=== PATIENT | female | born 1955 | race Caucasian/White ===

== ENCOUNTER → 2016-06-19 | Outpatient (CLI) | payer BC ==
[2016-06-19 18:51] LABS: Basophils % (A) 1 %; CH 31.5; CHCM 32.7; Eosinophils # (A) 0.1 k/uL (0-0.7); Eosinophils % (A) 2 %; HCT 43.7 % (34.0-46.0); HDW 2.39; HGB 14.2 gm/dL (11.4-16.0); Luc % (Auto) 3; Lymphocytes % (A) 24 %; MCH 31.5 pg (25.0-35.0); MCHC 32.5 g/dL (31.0-37.0); Mean Platelet Volume 7.1; Monocytes # (A) 0.3 k/uL (0-1.0); Monocytes % (A) 8 %; Neutrophils # (A) 2.5 k/uL (1.3-7.7); Neutrophils % (A) 63 %; RBC 4.51 m/uL (3.80-5.40); RDW 12.6 % (11.5-15.5); WBC (Perox) 4.28
[2016-06-19 19:03] LABS: ALT 38 U/L (9-52); AST 31 U/L (14-36); Alkaline Phosphatase 76 U/L (38-126); Anion Gap 9 mmol/L; Blood Urea Nitrogen 12 mg/dL (7-17); Calcium 10.3 mg/dL (8.4-10.2); Carbon Dioxide 30 mmol/L (22-30); Chloride 103 mmol/L (98-107); Cholesterol 248 mg/dL (<200); Glucose 93 mg/dL (74-99); HDL Cholesterol 86 mg/dL (40-60); Non-African American GFR(MDRD) >60 (>60 ml/min/1.73 sqM); Potassium 4.4 mmol/L (3.5-5.1); Sodium 142 mmol/L (137-145); Total Bilirubin 0.5 mg/dL (0.2-1.3); Triglycerides 57 mg/dL (<150)
== END ==
LOC: MMGSC 10:51
PROVIDERS: ATTEND Family Medicine
DX: Z00.00 Encounter for general adult medical examination without abnormal findings (principal); E78.00 Pure hypercholesterolemia, unspecified; M81.0 Age-related osteoporosis without current pathological fracture
CPT/HCPCS: 36415; 80053; 80061; 82306; 84439; 84443; 85025

== ENCOUNTER → 2018-01-17 | Outpatient (CLI) | payer BC ==
--- NOTE | 2018-01-19 09:13 | MM ---
Reason for exam: screening (asymptomatic). Last mammogram was performed 2 years and 4 months ago. History: Patient is postmenopausal and had first child at age 30. Physical Findings: A clinical breast exam by your physician is recommended on an annual basis and results should be correlated with mammographic findings. MG 3D Screening Mammo W/Cad Bilateral CC and MLO view(s) were taken. Prior study comparison: September 24, 2015, bilateral MG screening mammo w CAD. July 12, 2007, bilateral diagnostic digital mammog. The breast tissue is extremely dense which could obscure a lesion on mammography. No significant changes when compared with prior studies. ASSESSMENT: Benign, BI-RAD 2 RECOMMENDATION: Routine screening mammogram of both breasts in 1 year.
== END | disposition home or self-care (01) ==
LOC: RADMAMWWP 16:10
PROVIDERS: ATTEND Obstetrics & Gynecology
DX: Z12.31 Encounter for screening mammogram for malignant neoplasm of breast (principal)
CPT/HCPCS: 77063; 77067

== ENCOUNTER 2018-07-25 21:52 | Observation (INO) | payer BC, MEDICARE ==
[2018-07-25] MEDS ORDERED: ASPIRIN 81 MG PO STA (22:30)
--- NOTE | 2018-07-25 22:38 | ED ---
General Adult HPI - General Chief complaint: Chest Pain Stated complaint: Chest Pain Time Seen by Provider: 07/25/18 22:02 Source: patient Mode of arrival: wheelchair Limitations: no limitations - History of Present Illness Initial comments: Dictation was produced using [employer] dictation software. please excuse any grammatical, word or spelling errors. Chief Complaint: 62-year-old female presents with chest pain with radiation to the back neck and left upper extremity. History of Present Illness: She has a past medical history of multiple sclerosis. Over the last 2-3 days she's been having chest pain with radiation t o the neck shoulder and left upper extremity. She was told by her chiropractor that there is concerns that symptoms could be secondary to acute coronary syndrome. She was told to come to the emergency department by that individual. Patient denies any cardiac history. She states that her pain is worse with lying back. She feels as though she can't get comfortable. Patient denies any nausea vomiting. No diaphoresis. She does still feel some mild symptoms at this time. Denies any pain with deep inspiration. The ROS documented in this emergency department record has been reviewed and co nfirmed by me. Those systems with pertinent positive or negative responses have been documented in the HPI. All other systems are other negative and/or noncontributory. PHYSICAL EXAM: General Impression: Alert and oriented x3, not in acute distress HEENT: Normocephalic atraumatic, extra-ocular movements intact, pupils equal and reactive to light bilaterally, mucous membranes moist. Cardiovascular: Heart regular rate and rhythm, S1&S2 audible, no murmurs, rubs or gallops Chest: Lungs clear to auscultation bilaterally, no rhonchi, no wheeze, no rales Abdomen: Bowel sounds present, abdomen soft, non-tender, non-distended, no organomegaly Musculoskeletal: Pulses present and equal in all extremities, no peripheral edema Motor: no focal deficits noted Neurological: CN II-XII grossly intact, no focal motor or sensory deficits noted Skin: Intact with no visualized rashes Psych: Normal affect and mood ED course: 62-year-old female presents with atypical chest pain with typical features.. Upon arrival are within acceptable limits. EKG does not show any signs of infarction. Laboratory evaluation obtained. CBC, coag panel, metabolic panel, cardiac enzymes are unremarkable. Chest x-ray is nonacute. Clinical presentation consistent with atypical chest pain with typical features. Disposition plan was made with patient. She requested to be placed in observation patient unit for serial troponins and cardiology consultation. EKG interpretation: Ventricular rate 56, sinus bradycardia, IL interval 140, care is 80, QTc 413. No IL prolongation, no QTC prolongation, no ST or T-wave changes noted. No old EKG for comparison. Overall, this EKG is unremarkable - Related Data Home Medications Medication Instructions Recorded Confirmed Barley Green ( Unknown) 1 tab PO DAILY 07/25/18 07/25/18 Biotin 5,000 mcg PO DAILY 07/25/18 07/25/18 Calcium Carbonate [Calcium] 600 mg PO DAILY 07/25/18 07/25/18 Cataplex E 2 (Unknown) 2 cap PO TID 07/25/18 07/25/18 Cholecalciferol (Vitamin D3) 2,000 unit PO DAILY 07/25/18 07/25/18 [Vitamin D3] Composure (Unknown) 1 tab PO DAILY 07/25/18 07/25/18 Essential Fatty Acid 1 tab PO DAILY 07/25/18 07/25/18 Fiber Drink 1 can PO DAILY 07/25/18 07/25/18 Zinc 50 mg PO DAILY 07/25/18 07/25/18 Allergies Allergy/AdvReac Type Severity Reaction Status Date / Time amoxicillin AdvReac Unknown Verified 07/25/18 22:16 clindamycin AdvReac Unknown Verified 07/25/18 22:16 codeine AdvReac Unknown Verified 07/25/18 22:16 prochlorperazine AdvReac Unknown Verified 07/25/18 22:16 [From Compazine] prochlorperazine edisylate AdvReac Unknown Verified 07/25/18 22:16 [From Compazine] prochlorperazine maleate AdvReac Unknown Verified 07/25/18 22:16 [From Compazine] rofecoxib [From Vioxx] AdvReac Unknown Verified 07/25/18 22:16 Sulfa (Sulfonamide AdvReac Unknown Verified 07/25/18 22:16 Antibiotics) Review of Systems ROS Statement: Those systems with pertinent positive or pertinent negative responses have been documented in the HPI. ROS Other: All systems not noted in ROS Statement are negative. Past Medical History Additional Past Medical History / Comment(s): MS History of Any Multi-Drug Resistant Organisms: None Reported Past Surgical History: Section, Orthopedic Surgery Additional Past Surgical History / Comment(s): oral sx Past Psychological History: No Psychological Hx Reported Smoking Status: Former smoker Past Alcohol Use History: Occasional Past Drug Use History: None Reported General Exam Limitations: no limitations Course Vital Signs 07/25/18 07/25/18 21:54 22:10 Temperature 98.1 F Pulse Rate 71 Pulse Rate [ 58 L Heat And Frost Insulator ] Respiratory 16 Rate Blood Pressure 155/83 O2 Sat by Pulse 100 Oximetry Medical Decision Making - Lab Data Result diagrams: 07/25/18 22:00 07/25/18 22:00 Lab Results 07/25/18 07/25/18 07/25/18 Range/Units 22:00 22:00 22:00 WBC 6.9 (3.8-10.6) k/uL RBC 4.29 (3.80-5.40) m/uL Hgb 13.3 (11.4-16.0) gm/dL Hct 39.5 (34.0-46.0) % MCV 92.1 (80.0-100.0) fL MCH 31.1 (25.0-35.0) pg MCHC 33.8 (31.0-37.0) g/dL RDW 13.7 (11.5-15.5) % Plt Count 217 (150-450) k/uL Neutrophils % 63 % Lymphocytes % 23 % Monocytes % 8 % Eosinophils % 3 % Basophils % 1 % Neutrophils # 4.3 (1.3-7.7) k/uL Lymphocytes # 1.6 (1.0-4.8) k/uL Monocytes # 0.6 (0-1.0) k/uL Eosinophils # 0.2 (0-0.7) k/uL Basophils # 0.0 (0-0.2) k/uL PT 10.1 (9.0-12.0) sec INR 0.9 (<1.2) APTT 25.0 (22.0-30.0) sec Sodium 140 (137-145) mmol/L Potassium 3.9 (3.5-5.1) mmol/L Chloride 106 (98-107) mmol/L Carbon Dioxide 27 (22-30) mmol/L Anion Gap 7 mmol/L BUN 17 (7-17) mg/dL Creatinine 0.60 (0.52-1.04) mg/dL Est GFR (CKD-EPI)AfAm >90 (>60 ml/min/1.73 sqM) Est GFR (CKD-EPI)NonAf >90 (>60 ml/min/1.73 sqM) Glucose 118 H (74-99) mg/dL Calcium 10.8 H (8.4-10.2) mg/dL Magnesium 2.2 (1.6-2.3) mg/dL Total Bilirubin 0.2 (0.2-1.3) mg/dL AST 30 (14-36) U/L ALT 22 (9-52) U/L Alkaline Phosphatase 88 (38-126) U/L Troponin I (0.000-0.034) ng/mL Total Protein 6.6 (6.3-8.2) g/dL Albumin 4.4 (3.5-5.0) g/dL Lipase 237 (23-300) U/L 07/25/18 Range/Units 22:00 WBC (3.8-10.6) k/uL RBC (3.80-5.40) m/uL Hgb (11.4-16.0) gm/dL Hct (34.0-46.0) % MCV (80.0-100.0) fL MCH (25.0-35.0) pg MCHC (31.0-37.0) g/dL RDW (11.5-15.5) % Plt Count (150-450) k/uL Neutrophils % % Lymphocytes % % Monocytes % % Eosinophils % % Basophils % % Neutrophils # (1.3-7.7) k/uL Lymphocytes # (1.0-4.8) k/uL Monocytes # (0-1.0) k/uL Eosinophils # (0-0.7) k/uL Basophils # (0-0.2) k/uL PT (9.0-12.0) sec INR (<1.2) APTT (22.0-30.0) sec Sodium (137-145) mmol/L Potassium (3.5-5.1) mmol/L Chloride (98-107) mmol/L Carbon Dioxide (22-30) mmol/L Anion Gap mmol/L BUN (7-17) mg/dL Creatinine (0.52-1.04) mg/dL Est GFR (CKD-EPI)AfAm (>60 ml/min/1.73 sqM) Est GFR (CKD-EPI)NonAf (>60 ml/min/1.73 sqM) Glucose (74-99) mg/dL Calcium (8.4-10.2) mg/dL Magnesium (1.6-2.3) mg/dL Total Bilirubin (0.2-1.3) mg/dL AST (14-36) U/L ALT (9-52) U/L Alkaline Phosphatase (38-126) U/L Troponin I <0.012 (0.000-0.034) ng/mL Total Protein (6.3-8.2) g/dL Albumin (3.5-5.0) g/dL Lipase (23-300) U/L Disposition Clinical Impression: Chest pain Disposition: ADMITTED IP TO THIS [facility] Condition: Fair Referrals: Irene Carbone MD [Primary Care Provider] - 1-2 days Decision Time: 23:56
[2018-07-25 22:51] LABS: Basophils % (A) 1 %; Eosinophils # (A) 0.2 k/uL (0-0.7); Eosinophils % (A) 3 %; HCT 39.5 % (34.0-46.0); HGB 13.3 gm/dL (11.4-16.0); Lymphocytes # (A) 1.6 k/uL (1.0-4.8); Lymphocytes % (A) 23 %; MCH 31.1 pg (25.0-35.0); MCHC 33.8 g/dL (31.0-37.0); MCV 92.1 fL (80.0-100.0); Mean Platelet Volume 6.9; Monocytes # (A) 0.6 k/uL (0-1.0); Monocytes % (A) 8 %; Neutrophils # (A) 4.3 k/uL (1.3-7.7); Neutrophils % (A) 63 %; Platelet Count 217 k/uL (150-450); RBC 4.29 m/uL (3.80-5.40); RDW 13.7 % (11.5-15.5); WBC 6.9 k/uL (3.8-10.6)
[2018-07-25 22:52] LABS: ALT 22 U/L (9-52); AST 30 U/L (14-36); African American GFR (CKD) >90 (>60 ml/min/1.73 sqM); Albumin 4.4 g/dL (3.5-5.0); Alkaline Phosphatase 88 U/L (38-126); Anion Gap 7 mmol/L; Blood Urea Nitrogen 17 mg/dL (7-17); Calcium 10.8 mg/dL (8.4-10.2); Carbon Dioxide 27 mmol/L (22-30); Chloride 106 mmol/L (98-107); Glucose 118 mg/dL (74-99); Lipase 237 U/L (23-300); Magnesium 2.2 mg/dL (1.6-2.3); Potassium 3.9 mmol/L (3.5-5.1); Sodium 140 mmol/L (137-145); Total Bilirubin 0.2 mg/dL (0.2-1.3); Total Protein 6.6 g/dL (6.3-8.2)
[2018-07-25 22:54] LABS: INR 0.9 (<1.2); Prothrombin Time 10.1 sec (9.0-12.0)
--- NOTE | 2018-07-25 23:13 | XR ---
EXAM: XR Chest, 2 Views CLINICAL HISTORY: ITS.REASON XR Reason: Chest Pain TECHNIQUE: Frontal and lateral views of the chest. COMPARISON: No relevant prior studies available. FINDINGS: Lungs: Unremarkable. No consolidation. Pleural space: Unremarkable. No pneumothorax. Heart: Unremarkable. No cardiomegaly. Mediastinum: Unremarkable. Bones/joints: Unremarkable. IMPRESSION: Normal chest x-rays.
[2018-07-25] MEDS ORDERED: NITROGLYCERIN SL TABS 0.4 MG TAB SUBLINGUAL PRN (23:53)
--- NOTE | 2018-07-26 01:52 | P.HPIM ---
History of Present Illness H&P Date: 07/26/18 Chief Complaint: chest pain 62-year-old female with history of MS. Patient presented to the hospital with complaints of chest pain. She reports that it started 3 days ago, patient doesn't have any cardiac history however her chiropractor suggested that she should go to the hospital to get evaluated to rule out acute coronary syndrome. Patient denies any smoking, history of hypertension, or hyperlipidemia. She reports that pain was 4 out of 10 in severity more of a left-sided over the chest radiating to the back and left arm and left of neck, she saw the chiropractor and had 2 sessions to realign but with no much benefit then she decided come to the ER for evaluation. Patient denies any associated diaphoresis nausea vomiting dizziness lightheadedness headache or palpitations. These pain episodes are not related to activity they happen all of a sudden sometimes with certain movements of the resolves on its own. Patient doesn't take any medications. Patient took 600 mg of Advil once for headache over the past week. Denies any stomach issues like GERD or ulcers in the past. Denies any GI bleeding changes in her urinary or bowel habits denies any abdominal pain. Patient is an avid walker she walks around 2 miles every day, with no limitations. In the ED initial workup was negative, EKG showed sinus bradycardia. Patient admitted for observation to rule out ACS Review of Systems Pertinent positives as noted in HPI. All other systems were reviewed and are negative Past Medical History Additional Past Medical History / Comment(s): MS History of Any Multi-Drug Resistant Organisms: None Reported Past Surgical History: Section, Orthopedic Surgery Additional Past Surgical History / Comment(s): oral sx Past Psychological History: No Psychological Hx Reported Smoking Status: Former smoker Past Alcohol Use History: Occasional Past Drug Use History: None Reported Medications and Allergies Home Medications Medication Instructions Recorded Confirmed Type Barley Green ( Unknown) 1 tab PO DAILY 07/25/18 07/25/18 History Biotin 5,000 mcg PO DAILY 07/25/18 07/25/18 History Calcium Carbonate [Calcium] 600 mg PO DAILY 07/25/18 07/25/18 History Cataplex E 2 (Unknown) 2 cap PO TID 07/25/18 07/25/18 History Cholecalciferol (Vitamin D3) 2,000 unit PO DAILY 07/25/18 07/25/18 History [Vitamin D3] Composure (Unknown) 1 tab PO DAILY 07/25/18 07/25/18 History Essential Fatty Acid 1 tab PO DAILY 07/25/18 07/25/18 History Fiber Drink 1 can PO DAILY 07/25/18 07/25/18 History Zinc 50 mg PO DAILY 07/25/18 07/25/18 History Allergies Allergy/AdvReac Type Severity Reaction Status Date / Time amoxicillin AdvReac Unknown Verified 07/25/18 22:16 clindamycin AdvReac Unknown Verified 07/25/18 22:16 codeine AdvReac Unknown Verified 07/25/18 22:16 prochlorperazine AdvReac Unknown Verified 07/25/18 22:16 [From Compazine] prochlorperazine edisylate AdvReac Unknown Verified 07/25/18 22:16 [From Compazine] prochlorperazine maleate AdvReac Unknown Verified 07/25/18 22:16 [From Compazine] rofecoxib [From Vioxx] AdvReac Unknown Verified 07/25/18 22:16 Sulfa (Sulfonamide AdvReac Unknown Verified 07/25/18 22:16 Antibiotics) Physical Exam Vitals: Vital Signs Temp Pulse Pulse Pulse Resp BP BP 07/26/18 00:47 97.7 F 72 18 127/76 07/25/18 22:10 58 L 07/25/18 21:54 98.1 F 71 16 155/83 Pulse Ox 07/26/18 00:47 98 07/25/18 22:10 07/25/18 21:54 100 Intake and Output 07/25/18 07/25/18 07/26/18 14:59 22:59 06:59 Other: Weight 60.01 kg Constitutional: No acute distress, conversant, pleasant Eyes: Anicteric sclerae, moist conjunctiva, no lid-lag Pupils equal round reactive to light ENMT: NC/AT Oropharynx clear, no erythema, exudates Neck: Supple, FROM, no masses, or JVD No carotid bruits No thyromegaly Lungs: Clear to auscultation Clear to percussion Normal respiratory effort, no accessory muscle use Cardiovascular: Heart regular in rate and rhythm, No murmurs, gallops, or rubs No peripheral edema Abdominal: Soft Nontender, no guarding, rebound or rigidity Abdomen moving with respiration Normoactive bowel sounds No hepatomegaly, No splenomegaly No palpable mass No abdominal wall hernia noted Skin: Normal temperature, tone, texture, turgor No induration No subcutaneous nodules No rash, lesions No ulcers Extremities: No digital cyanosis No clubbing Pedal pulses intact and symmetrical Radial pulses intact and symmetrical No calf tenderness Psychiatric: Alert and oriented to person, place and time Appropriate affect fair judgement Neuro Muscles Strength 5/5 in all 4 extremities Sensation to light touch grossly present throughout Cranial nerves II-XII grossly intact No focal sensory deficits Lymphatics: no palpable cervical or supraclavicular , or inguinal lymph nodes Results CBC & Chem 7: 07/25/18 22:00 07/25/18 22:00 Labs: Abnormal Lab Results - Last 24 Hours (Table) 07/25/18 Range/Units 22:00 Glucose 118 H (74-99) mg/dL Calcium 10.8 H (8.4-10.2) mg/dL Assessment and Plan Assessment: 62-year-old female with history of MS admitted under observation to rule out acute coronary syndrome due to atypical chest pain Plan: Atypical chest pain rule out ACS Cardiac enzymes Cardiac monitoring EKG showing sinus bradycardia Aspirin, nitro when necessary Cardiology consult Monitor vital signs Check morning labs lipid panel CBC BMP Sinus bradycardia by EKG, asymptomatic, currently resolved Cardiac monitoring is showing heart rate in the 70s History of MS currently stable DVT prophylaxis mechanical Surrogate decision-maker: Patient * CODE STATUS: Full code Discussed with: Patient, ER Anticipated discharge: Less than [address]: Home A total of 60* minutes was spent on the care of this complex patient more than 50% of the time was spent in counseling and care coordination.
[2018-07-26 01:56] VITALS: BMI 20.7
[2018-07-26 04:25] LABS: Basophils % (A) 1 %; Eosinophils # (A) 0.1 k/uL (0-0.7); Eosinophils % (A) 3 %; HGB 12.3 gm/dL (11.4-16.0); Lymphocytes # (A) 1.4 k/uL (1.0-4.8); Lymphocytes % (A) 32 %; MCH 31.2 pg (25.0-35.0); MCHC 33.3 g/dL (31.0-37.0); MCV 93.9 fL (80.0-100.0); Mean Platelet Volume 7.3; Monocytes # (A) 0.3 k/uL (0-1.0); Monocytes % (A) 8 %; Neutrophils # (A) 2.4 k/uL (1.3-7.7); Neutrophils % (A) 55 %; Platelet Count 182 k/uL (150-450); RBC 3.94 m/uL (3.80-5.40); RDW 12.5 % (11.5-15.5); WBC 4.5 k/uL (3.8-10.6)
[2018-07-26 05:06] LABS: African American GFR (CKD) >90 (>60 ml/min/1.73 sqM); Anion Gap 4 mmol/L; Blood Urea Nitrogen 17 mg/dL (7-17); Calcium 10.2 mg/dL (8.4-10.2); Carbon Dioxide 28 mmol/L (22-30); Chloride 109 mmol/L (98-107); Cholesterol 190 mg/dL (<200); Glucose 103 mg/dL (74-99); HDL Cholesterol 71 mg/dL (40-60); LDL Cholesterol,Calculated 111 mg/dL (0-99); Potassium 4.2 mmol/L (3.5-5.1); Sodium 141 mmol/L (137-145); Triglycerides 42 mg/dL (<150)
[2018-07-26 07:47] VITALS: BP 132/78; PULSE 79; TEMP 98.1
[2018-07-26 07:57] VITALS: RESP 16
--- NOTE | 2018-07-26 08:52 | P.CRDCN ---
History of Present Illness Consult date: 07/26/18 Chief complaint: Chest pain History of present illness: This is a pleasant 62-year-old female patient with a past medical history significant for multiple sclerosis presented to the emergency room complaining of chest discomfort. The patient described discomfort in the left upper chest, as sharp kind of discomfort, with discomfort also in the left arm. The chest discomfort is clearly nonexertional. It has been intermittent but again is not exertional and lasting only for a few seconds. The EKG showed sinus rhythm without any significant ST or T-wave abnormalities. The chest x-ray did not show any acute abnormalities. The cardiac enzymes were checked and came in to be unremarkable. The patient is not aware of any prior history of coronary artery disease and she does not have any diabetes, hypertension, or dyslipidemia. She does not smoke or drink alcohol. She does not have any significant family history of coronary artery disease. She is quite active and she walk about 2 miles every day. Past Medical History Additional Past Medical History / Comment(s): MS History of Any Multi-Drug Resistant Organisms: None Reported Past Surgical History: Section, Orthopedic Surgery Additional Past Surgical History / Comment(s): oral sx Past Anesthesia/Blood Transfusion Reactions: No Reported Reaction Past Psychological History: No Psychological Hx Reported Smoking Status: Former smoker Past Alcohol Use History: Occasional Past Drug Use History: None Reported - Past Family History Father Family Medical History: Diabetes Mellitus Mother Family Medical History: Hypertension Additional Family Medical History / Comment(s): arrythmia Medications and Allergies Home Medications Medication Instructions Recorded Confirmed Type Barley Green ( Unknown) 1 tab PO DAILY 07/25/18 07/25/18 History Biotin 5,000 mcg PO DAILY 07/25/18 07/25/18 History Calcium Carbonate [Calcium] 600 mg PO DAILY 07/25/18 07/25/18 History Cataplex E 2 (Unknown) 2 cap PO TID 07/25/18 07/25/18 History Cholecalciferol (Vitamin D3) 2,000 unit PO DAILY 07/25/18 07/25/18 History [Vitamin D3] Composure (Unknown) 1 tab PO DAILY 07/25/18 07/25/18 History Essential Fatty Acid 1 tab PO DAILY 07/25/18 07/25/18 History Fiber Drink 1 can PO DAILY 07/25/18 07/25/18 History Zinc 50 mg PO DAILY 07/25/18 07/25/18 History Allergies Allergy/AdvReac Type Severity Reaction Status Date / Time amoxicillin AdvReac Unknown Verified 07/25/18 22:16 clindamycin AdvReac Unknown Verified 07/25/18 22:16 codeine AdvReac Unknown Verified 07/25/18 22:16 prochlorperazine AdvReac Unknown Verified 07/25/18 22:16 [From Compazine] prochlorperazine edisylate AdvReac Unknown Verified 07/25/18 22:16 [From Compazine] prochlorperazine maleate AdvReac Unknown Verified 07/25/18 22:16 [From Compazine] rofecoxib [From Vioxx] AdvReac Unknown Verified 07/25/18 22:16 Sulfa (Sulfonamide AdvReac Unknown Verified 07/25/18 22:16 Antibiotics) Physical Exam Vitals: Vital Signs Temp Pulse Pulse Pulse Resp BP BP 07/26/18 07:54 79 16 07/26/18 07:00 98.1 F 79 18 07/26/18 03:45 98 F 55 L 18 126/68 07/26/18 03:32 18 07/26/18 01:05 18 07/26/18 00:47 97.7 F 72 18 127/76 07/25/18 22:10 58 L 07/25/18 21:54 98.1 F 71 16 155/83 BP Pulse Ox 07/26/18 07:54 07/26/18 07:00 132/78 96 07/26/18 03:45 96 07/26/18 03:32 07/26/18 01:05 07/26/18 00:47 98 07/25/18 22:10 07/25/18 21:54 100 Intake and Output 07/25/18 07/26/18 07/26/18 22:59 06:59 14:59 Other: Voiding Method Toilet Toilet # Voids 1 Weight 60.01 kg - Constitutional General appearance: no acute distress - Respiratory Respiratory: bilateral: CTA - Cardiovascular Rhythm: regular Heart sounds: normal: S1, S2 Abnormal Heart Sounds: systolic murmur Results 07/26/18 04:16 07/26/18 04:16 Cardiac Enzymes 06/03/19 06/03/19 06/04/19 Range/Units 22:00 22:00 04:16 AST 30 (14-36) U/L Troponin I <0.012 <0.012 (0.000-0.034) ng/mL Coagulation 07/25/18 Range/Units 22:00 PT 10.1 (9.0-12.0) sec APTT 25.0 (22.0-30.0) sec Lipids 07/26/18 Range/Units 04:16 Triglycerides 42 (<150) mg/dL Cholesterol 190 (<200) mg/dL HDL Cholesterol 71 H (40-60) mg/dL CBC 07/25/18 07/26/18 Range/Units 22:00 04:16 WBC 6.9 4.5 (3.8-10.6) k/uL RBC 4.29 3.94 (3.80-5.40) m/uL Hgb 13.3 12.3 (11.4-16.0) gm/dL Hct 39.5 37.0 (34.0-46.0) % Plt Count 217 182 (150-450) k/uL Comprehensive Metabolic Panel 07/25/18 07/26/18 Range/Units 22:00 04:16 Sodium 140 141 (137-145) mmol/L Potassium 3.9 4.2 (3.5-5.1) mmol/L Chloride 106 109 H (98-107) mmol/L Carbon Dioxide 27 28 (22-30) mmol/L BUN 17 17 (7-17) mg/dL Creatinine 0.60 0.50 L (0.52-1.04) mg/dL Glucose 118 H 103 H (74-99) mg/dL Calcium 10.8 H 10.2 (8.4-10.2) mg/dL AST 30 (14-36) U/L ALT 22 (9-52) U/L Alkaline Phosphatase 88 (38-126) U/L Total Protein 6.6 (6.3-8.2) g/dL Albumin 4.4 (3.5-5.0) g/dL Current Medications Generic Name Dose Route Start Last Admin Trade Name Freq PRN Reason Stop Dose Admin Aspirin 325 mg 07/26/18 09:00 Aspirin PO DAILY ECHO Nitroglycerin 0.4 mg 07/25/18 23:53 Nitrostat SUBLINGUAL Q5M PRN Chest Pain Intake and Output 07/25/18 07/26/18 07/26/18 22:59 06:59 14:59 Other: Voiding Method Toilet Toilet # Voids 1 Weight 60.01 kg 07/26/18 04:16 07/26/18 04:16 Assessment and Plan Assessment: Assessment #1 atypical chest discomfort #2 multiple sclerosis Plan #1 acute coronary event was ruled out #2 I did discuss with the patient the need for stress test to be done either as an inpatient or outpatient. I recommended the patient to get up and around and if she is asymptomatic she possibly can be discharged home and I will follow-up with the patient as an outpatient were I can arrange for stress test and echo cardiogram. Thank you for allowing us participate in her care and we will continue following up with the patient
[2018-07-26] MEDS ORDERED: ASPIRIN 325 MG TAB PO SCH (09:00)
--- NOTE | 2018-07-26 14:10 | P.DS ---
Providers Date of admission: 07/25/18 23:53 Expected date of discharge: 07/26/18 Attending physician: Marsha Bowens MD Consults: 07/25/18 23:53 Consult Physician Urgent Consulting Provider: Hilario Cavazos Consult Reason/Comments: chest pain Do you want consulting provider notified?: Yes Primary care physician: Irene Carbone - Discharge Diagnosis(es) (1) Atypical chest pain Status: Acute (2) Sinus bradycardia Status: Acute (3) Multiple sclerosis Status: Acute Hospital Course: The patient is a 62 female was placed on observation for atypical chest pain with need to rule out ACS after presenting with chest discomfort, workup with EKG showed sinus mechanism without any significant ST or T wave abnormalities. Chest x-ray did not show any acute abnormalities cardiac enzymes were checked and were all unremarkable the patient does not have any ongoing CAD risk factors and has a negative family history. She was seen by cardiology recommended to follow-up outpatient to potentially have a stress test and echocardiogram done. She was discharged home in stable condition. This discharge process took approximately 30 minutes Focused exam Cardiovascular: Regular rate rhythm no murmurs rubs or gallops, no JVD, PMI n ondisplaced Patient Condition at Discharge: Good Plan - Discharge Summary Discharge Rx Participant: No New Discharge Prescriptions: Continue Zinc 50 mg PO DAILY Cholecalciferol (Vitamin D3) [Vitamin D3] 2,000 unit PO DAILY Calcium Carbonate [Calcium] 600 mg PO DAILY Fiber Drink 1 can PO DAILY Essential Fatty Acid 1 tab PO DAILY Composure (Unknown) 1 tab PO DAILY Cataplex E 2 (Unknown) 2 cap PO TID Barley Green ( Unknown) 1 tab PO DAILY #0 No Action Biotin 5,000 mcg PO DAILY Discharge Medication List Biotin 5,000 mcg PO DAILY 07/25/18 [History] Calcium Carbonate [Calcium] 600 mg PO DAILY 07/25/18 [History] Cataplex E 2 (Unknown) 2 cap PO TID 07/25/18 [History] Cholecalciferol (Vitamin D3) [Vitamin D3] 2,000 unit PO DAILY 07/25/18 [History] Composure (Unknown) 1 tab PO DAILY 07/25/18 [History] Essential Fatty Acid 1 tab PO DAILY 07/25/18 [History] Fiber Drink 1 can PO DAILY 07/25/18 [History] Zinc 50 mg PO DAILY 07/25/18 [History] Barley Green ( Unknown) 1 tab PO DAILY #0 07/26/18 [Rx] Follow up Appointment(s)/Referral(s): Hilario Cavazos MD [STAFF PHYSICIAN] - 08/05/18 1:30 pm (stress echo test- August 11 at 2:00pm echocardiogram- 08/11 at 2:00pm) Irene Carbone MD [Primary Care Provider] - 1 Week (August 01 at 11:45am) Patient Instructions/Handouts: Chest Pain (DC), Cardiac Stress Test (DC) Discharge Disposition: HOME SELF-CARE
== END 2018-07-26 10:40 | disposition home or self-care (01) ==
LOC: EC 21:52 → 1SOBS 23:53
PROVIDERS: ADMIT Internal Medicine; ATTEND Internal Medicine
DX: R07.89 Other chest pain (principal); R00.1 Bradycardia, unspecified; G35 Multiple sclerosis; Z87.891 Personal history of nicotine dependence; Z88.1 Allergy status to other antibiotic agents; Z88.5 Allergy status to narcotic agent; Z88.0 Allergy status to penicillin; Z88.2 Allergy status to sulfonamides; Z88.8 Allergy status to other drugs, medicaments and biological substances; Z83.3 Family history of diabetes mellitus; Z82.49 Family history of ischemic heart disease and other diseases of the circulatory system
CPT/HCPCS: 99285; 36415; 93005; 80061; 80053; 80048; 83690; 83735; 84484 ×2; 85025 ×2; 85610; 85730; 71046; G0378 ×2

== ENCOUNTER → 2018-09-08 | Outpatient (CLI) | payer BC, MEDICARE ==
--- NOTE | 2018-09-08 12:28 | XR ---
EXAMINATION TYPE: XR ribs RT DATE OF EXAM: 09/08/2018 COMPARISON: Chest x-ray 07/25/2018 HISTORY: Pain TECHNIQUE: 2 view right ribs FINDINGS: No pneumothorax is evident on these images. No acute displaced fractures are evident. IMPRESSION: 1. Normal 2 view right ribs
== END | disposition home or self-care (01) ==
LOC: RADXRMAIN 12:08
PROVIDERS: ATTEND Family Medicine
DX: R07.81 Pleurodynia (principal)

== ENCOUNTER → 2018-10-26 | Outpatient (CLI) | payer MEDICARE, BC ==
--- NOTE | 2018-10-26 09:10 | US ---
EXAMINATION TYPE: US abdomen complete DATE OF EXAM: 10/26/2018 COMPARISON: NONE CLINICAL HISTORY: R14.0 Abd Bloating. Pt states ABD bloating post prandial EXAM MEASUREMENTS: Liver Length: 12.6 cm Gallbladder Wall: 0.1 cm CBD: 0.5 cm Spleen: 9.6 cm Right Kidney: 10.5 x 4.6 x 5.0 cm Left Kidney: 10.7 x 5.2 x 4.5 cm Pancreas: Within normal limits as visualized with obscuration of the pancreatic head and tail. Liver: wnl Gallbladder: Possible polyps near neck versus normal and shadowing calculi. These measure approximat can 2 mm. Evidence for sonographic Cain's sign: No CBD: wnl Spleen: wnl Right Kidney: wnl Left Kidney: wnl Upper IVC: wnl Abd Aorta: wnl The liver is homogenous. The intrahepatic portion of the IVC and proximal abdominal aorta are within normal limits. There is no evidence of Common bile duct is unremarkable. The visualized portions o f the pancreas are homogenous. The spleen is unremarkable. Kidneys are symmetric and free of hydron ephrosis. No renal lesions are seen. IMPRESSION: No sonographic evidence of acute cholecystitis however either 2 mm dependent gallbladder polyps are seen near the gallbladder neck versus small nonshadowing calculi.
== END | disposition home or self-care (01) ==
LOC: RADUSWWP 07:27
PROVIDERS: ATTEND Family Medicine
DX: R14.0 Abdominal distension (gaseous) (principal)
CPT/HCPCS: 76700

== ENCOUNTER → 2019-10-09 | Outpatient (CLI) | payer MEDICARE, BC ==
--- NOTE | 2019-10-09 08:50 | MR ---
EXAMINATION TYPE: MR brain/orbits wo/w con DATE OF EXAM: 10/09/2019 COMPARISON: NONE HISTORY: Optic neuritis, MS per order. Vision issues right eye per patient. TECHNIQUE: Multiplanar, multisequence images of the brain and brainstem is performed without and with IV contras t, utilizing 6 mL intravenous Gadavist gadolinium contrast is administered intravenously. Demyelinat ing disease protocol with additional Sagittal Flair sequence performed. Additional dedicated imaging of the orbits is performed as requested. FINDINGS: T2 Lesions Present : Yes Approximate Number of Lesions: 80-100 of varying size and shape including confluent lesions greatest periventricular level Locations Identified : Scattered including brainstem and infratentorial involvement Size of Reference Lesion(s): 1. 1.5 x 1.0 x 1.2 cm on axial image 19 and sagittal image 10 left parietal white matter 2 9 x 9 x 7 mm on axial image 13 and sagittal image 30 right superior temporal lesion. 3. 5 x 4 x 3 mm on axial image 9 and sagittal image 19 left mid kaushik lesion Enhancing Lesion(s) Present: No T1 Hypointense Lesion(s) Present: Yes Change from Prior: n/a Diffusion weighted images demonstrate no evidence of a recent infarct or other diffusion abnormality. There is no worrisome extra-axial fluid collection. The ventricular system and cisternal spaces ar e normal in size and appearance. The brain volume is age appropriate. Midline structures demonstrate normal morphology. The craniocervical junction appears within normal limits. Post contrast images demonstrate no abnormal enhancement. The dural venous sinuses appear pa tent. The paranasal sinuses are grossly clear. The globes are intact bilaterally. Rectus muscles are symmet delma and within normal limits. There is asymmetric enhancement of the right optic nerve greatest mid s egment and cervical region axial image 11 and coronal image 13 where it is asymmetrically larger and slightly irregular. IMPRESSION: 1. Severe white matter changes as detailed above correlate with patient's history of multiple scleros is. No active enhancing lesions or plaques noted. 2. Asymmetric right optic nerve enhancement consistent with active optic neuritis as suspected clinic ally.
== END | disposition home or self-care (01) ==
LOC: RADMRIMAIN 06:36
PROVIDERS: ATTEND Ophthalmology
DX: R90.82 White matter disease, unspecified (principal); H47.091 Other disorders of optic nerve, not elsewhere classified, right eye
CPT/HCPCS: 70543; 70553; A9585

== ENCOUNTER → 2019-10-19 | Outpatient (CLI) | payer MEDICARE, BC | END | disposition home or self-care (01) | LOC: LABWHC1 09:22 | PROVIDERS: ATTEND Family Medicine | DX: E83.52 Hypercalcemia (principal) | CPT/HCPCS: 81050; 82340 ==

== ENCOUNTER → 2019-11-03 | Day surgery (SDC) | payer MEDICARE, BC ==
[2019-11-01 15:46] VITALS: BMI 20.9
[~2019-11-03] MED LIST: LACTATED RINGERS 1,000 ML IV SCH; LIDOCAINE 1% (10MG/ML) FOR IV START INTRADERMA PRN; PROPOFOL 10 MG/ML 20 ML VIAL IV ONE
[2019-11-03 08:38] VITALS: RESP 16; TEMP 98.2
--- NOTE | 2019-11-03 09:38 | P.PCN ---
Date of Procedure: 11/03/19 Procedure(s) Performed: BRIEF HISTORY: Patient is a 64-year-old pleasant white female scheduled for an elective colonoscopy as a part of screening for colorectal neoplasia. Her last colonoscopy was 10 years ago. PROCEDURE PERFORMED: Colonoscop with snare polypectomy PREOPERATIVE DIAGNOSIS: Screening for colon cancer. IV sedation per Anesthesia. PROCEDURE: After informed consent was obtained, the patient, was brought into the endoscopy unit. IV sedation was administered by Anesthesia under continuous monitoring. Digital rectal examination was normal. Initially the Olympus CF-160 flexible video colonoscope was then inserted in the rectum, gradually advanced into the cecum without any difficulty. Careful examination was performed as the scope was gradually being withdrawn. Ileocecal valve and the appendiceal orifice were visualized and appeared normal. Prep was excellent. Mucosa of the cecum, ascending colon, transverse colon, descending colon appeared normal. In the sigmoid: Colon There was a 1 cm polyp that was moved by snare polypectomy. Rest of the, sigmoid colon, and rectum appeared normal. There was diffuse gastritis but mentation throughout the entire colon consistent with melanosis coli. Retroflexion was performed in the rectum and no lesions were seen. The patient tolerated the procedure well. IMPRESSION: 1 cm sigmoid polyp status post polypectomy Diffuse melanosis coli RECOMMENDATIONS: Findings of this examination were discussed with the patient as well as her family. She was advised to follow with the biopsy results. If the biopsy shows an adenoma she can have a repeat colonoscopy in 3-5 years
[2019-11-03 10:01] VITALS: BP 131/78; PULSE 58
== END ==
LOC: ORWHC2ENDO 07:54
PROVIDERS: ATTEND Internal Medicine Gastroenterology
DX: Z12.11 Encounter for screening for malignant neoplasm of colon (principal); D12.5 Benign neoplasm of sigmoid colon; K63.89 Other specified diseases of intestine; G35 Multiple sclerosis; Z88.0 Allergy status to penicillin; Z88.1 Allergy status to other antibiotic agents; Z88.2 Allergy status to sulfonamides; Z88.5 Allergy status to narcotic agent; Z79.899 Other long term (current) drug therapy
CPT/HCPCS: 88305; 45385; J2704

== ENCOUNTER → 2020-08-27 | Outpatient (CLI) | payer MEDICARE | END | disposition home or self-care (01) | CPT/HCPCS: 36415; 82040; 82310; 82330; 83970; 84100 ==

== ENCOUNTER → 2020-11-25 | Outpatient (CLI) | payer MEDICARE ==
--- NOTE | 2020-11-27 08:43 | MM ---
Reason for exam: screening (asymptomatic). Last mammogram was performed 2 years and 10 months ago. History: Patient is postmenopausal and had first child at age 30. Physical Findings: A clinical breast exam by your physician is recommended on an annual basis and results should be correlated with mammographic findings. MG 3D Screening Mammo W/Cad Bilateral CC and MLO view(s) were taken. XCCL view(s) were taken of the right breast. Prior study comparison: January 17, 2018, bilateral MG 3d screening mammo w/cad. The breast tissue is extremely dense which could obscure a lesion on mammography. No significant changes when compared with prior studies. ASSESSMENT: Benign, BI-RAD 2 RECOMMENDATION: Routine screening mammogram of both breasts in 1 year.
== END | disposition home or self-care (01) ==
LOC: RADMAMWWP 13:11
PROVIDERS: ATTEND Family Medicine
DX: Z12.31 Encounter for screening mammogram for malignant neoplasm of breast (principal); Z78.0 Asymptomatic menopausal state
CPT/HCPCS: 77063; 77067

== ENCOUNTER → 2023-09-17 | Outpatient (CLI) | payer MEDICARE ==
--- NOTE | 2023-09-21 09:54 | MM ---
Reason for Exam: Screening (asymptomatic). Last mammogram was performed 2 year(s) and 9 month(s) ago. Patient History: Menarche at age 11. First Full-Term at age 30. Late child-bearing (after 28). Postmenopausal. Risk Values: Lynn 5 year model risk: 2.4%. NCI Lifetime model risk: 6.9%. Prior Study Comparison: 09/24/2015 Bilateral Screening Mammogram, [facility]. 01/17/2018 Bilateral Screening Mammogram, [facility]. 11/25/2020 Bilateral Screening Mammogram, [facility]. Tissue Density: The breasts are extremely dense, which lowers the sensitivity of mammography. Findings: Analyzed By CAD. Right breast: There is no suspicious group of microcalcifications or new suspicious mass. Benign-appearing calcifications right breast. Left breast: There is no suspicious group of microcalcifications or new suspicious mass. Benign-appearing calcifications left breast. Overall Assessment: Benign, BI-RAD 2 Management: Screening Mammogram of both breasts in [address] [facility] will attempt to contact patient to return for supplemental views and ultrasound if indicated. Patient should continue monthly self-breast exams. A clinical breast exam by your physician is recommended on an annual basis. This exam should not preclude additional follow-up of suspicious palpable abnormalities. Note on Lynn scores and lifetime risk: 1. A Lynn score greater than 3% is considered moderate risk. If this is the case, consider specialist referral to assess eligibility for a risk reducing agent. 2. If overall lifetime risk for the development of breast cancer is 20% or higher, the patient may qualify for future screening with alternating mammogram and breast MRI. Electronically signed and approved by: Howard Gómez DO
== END | disposition home or self-care (01) ==
LOC: RADMAMWWP 11:22
PROVIDERS: ATTEND Family Medicine
DX: Z12.31 Encounter for screening mammogram for malignant neoplasm of breast (principal); R92.343 Mammographic extreme density, bilateral breasts; Z78.0 Asymptomatic menopausal state
CPT/HCPCS: 77063; 77067

== ENCOUNTER 2024-02-08 06:37 | Day surgery (SDC) | payer MEDICARE ==
[2024-02-08] MEDS ORDERED: LIDOCAINE 1% (10MG/ML) FOR IV START INTRADERMA PRN (06:46)
[2024-02-08 07:16] VITALS: TEMP 98
[2024-02-08] MEDS: LACTATED RINGERS 1,000 ML IV SCH (07:24)
[2024-02-08] MEDS: IV FLUID CONTINUATION 1,000 ML IV ONE (07:25)
[2024-02-08] MEDS ORDERED: ONDANSETRON 4 MG/2 ML VIAL IVP STA (07:29)
[2024-02-08] MEDS: ONDANSETRON 4 MG/2 ML VIAL IVP STA (07:32)
[2024-02-08] MEDS ORDERED: LIDOCAINE 1% INJ 10MG/ML (20 ML MDV) ONE (07:48)
[2024-02-08] MEDS ORDERED: PROPOFOL 10 MG/ML 20 ML VIAL IV ONE (07:48)
--- NOTE | 2024-02-08 08:11 | P.PCN ---
Date of Procedure: 02/08/24 Procedure(s) Performed: BRIEF HISTORY: Patient is a 68-year-old pleasant white female scheduled for an elective colonoscopy as a part of dilation by history of colon polyps. Her last colonoscopy was 4 years ago and was noted to have a serrated adenoma. PROCEDURE PERFORMED: Colonoscopy snare polypectomy. PREOPERATIVE DIAGNOSIS: History of colon polyps. IV sedation per Anesthesia. PROCEDURE: After informed consent was obtained, the patient, was brought into the endoscopy unit. IV sedation was administered by Anesthesia under continuous monitoring. Digital rectal examination was normal. Initially the Olympus CF-160 flexible video colonoscope was then inserted in the rectum, gradually advanced into the cecum without any difficulty. Careful examination was performed as the scope was gradually being withdrawn. Ileocecal valve and the appendiceal orifice were visualized and appeared normal. Prep was excellent. Mucosa of the cecum, ascending colon, transverse colon, descending colon, appeared normal except for melanosis coli throughout the entire colon. In the sigmoid colon there was a 7 mm sessile polyp removed by cold snare polypectomy. Rest of the sigmoid colon, and rectum appeared normal. Retroflexion was performed in the rectum and grade 2 internal hemorrhoids were seen. The patient tolerated the procedure well. IMPRESSION: 7 mm sigmoid colon polyp status post cold snare polypectomy Grade 2 internal hemorrhoids Melanosis coli RECOMMENDATIONS: Findings of this examination were discussed with the patient as well as her family. She was advised to follow with the biopsy results. If the biopsy reveals adenoma she can have repeat colonoscopy in 5 years.
[2024-02-08 08:35] VITALS: BP 149/79; PULSE 51; RESP 17
== END 2024-02-08 09:01 | disposition home or self-care (01) ==
LOC: ORWHC2ENDO 06:37
PROVIDERS: ATTEND Internal Medicine Gastroenterology
DX: Z12.11 Encounter for screening for malignant neoplasm of colon (principal); K63.5 Polyp of colon; K64.1 Second degree hemorrhoids; Z86.0101 Personal history of adenomatous and serrated colon polyps
CPT/HCPCS: 45385; J2405; J2003; J2704; 88305

== ENCOUNTER → 2024-02-17 | Outpatient (CLI) | payer MEDICARE ==
--- NOTE | 2024-02-17 15:02 | MR ---
EXAMINATION TYPE: MR brain wo con DATE OF EXAM: 02/17/2024 12:59 PM COMPARISON: 10/09/2019 CLINICAL INDICATION: Female, 68 years old with history of G35 MULTIPLE SCLEROSIS, Headaches, MS surve illance. TECHNIQUE: Multiplanar, multisequence images of the brain and brainstem is performed without IV contr ast. Demyelinating disease protocol with additional Sagittal Flair sequence performed. FINDINGS: T2 Lesions Present : Yes Approximate Number of Lesions: Over 30 in each cerebral hemispheres Locations Identified : Corpus callosum splenium, Pericallosal, Periventricular, Juxtacortical, right cerebellum, left kaushik, dorsal upper cervical spinal cord Size of Reference Lesion(s): 1. 1.1 x 0.8 cm subcortical right frontoparietal junction axial image 24. 2. 2.7 x 1.7 cm right periatrial regions on axial image 19. 3. 1.6 x 0.9 cm left parietal subcortical region, axial image 19. 4. 1.1 x 0.5 cm left periventricular adjacent to the frontal horn, axial image 17. 5. 9 mm dorsal upper cervical spinal cord, sagittal image 141. 6. 6 mm left paramedian kaushik, sagittal image 135. 7. 3 mm splenium of the corpus callosum, sagittal image 146. 8. 6 mm right cerebellum, axial image 8. Enhancing Lesion(s) Present: N/A T1 Hypointense Lesion(s) Present: Yes Change from Prior: Overall stable in number though scattered lesions may be a millimeter or 2 larger. Diffusion weighted images demonstrate some scattered T2 shine through; no evidence of a recent infarc t or other diffusion abnormality. There is no worrisome extra-axial fluid collection. The ventricular system and cisternal spaces are normal in size and appearance. There is mild generalized supratentorial volume loss. Major intracranial flow voids are intact. Anatomic variation with persistent origin right [employer]. Midline structures demonstrate normal morphology. The craniocervical junction appears within normal limits. Mild mucosal thickening throughout the ethmoid air cells. Globes are intact. IMPRESSION: Moderate to severe overall demyelinating plaque burden. While the overall number of lesions is fairly similar, a few scattered lesions appear minimally larger by 1 to 2 mm. The lesion within the dorsal upper cervical spinal cord is not well seen previously. [facility], , 02/17/2024 3:00 PM
== END | disposition home or self-care (01) ==
LOC: RADMRIMAIN 12:29
PROVIDERS: ATTEND Psychiatry & Neurology Neurology
DX: G35 Multiple sclerosis (principal)
CPT/HCPCS: 70551